=== PATIENT | male | born 1985 | race Caucasian/White ===

== ENCOUNTER 2017-08-14 09:16 | Emergency (ER) | payer SELFPAY ==
[~2017-08-14] VITALS: Ht 182.9 cm; Wt 92.5 kg
--- NOTE | 2017-08-14 09:38 | ED EENT ---
History of Present Illness General Chief Complaint: Oral/Throat Problems Stated Complaint: FEVER,SWOLLEN LYMPH NODES Source: patient History of Present Illness Date Seen by Provider: Aug 14, 2017 Time Seen by Provider: 09:25 Initial Comments PT ARRIVES VIA POV FROM [facility] C/O SORE THROAT SINCE WEDNESDAY, AND GETTING WORSE, ESPECIALLY SINCE YESTERDAY HAS HAD TROUBLE SWALLOWING SALIVA SINCE YESTERDAY AROUND 1400 HAS HAD SUBJECTIVE FEVER HAD IBUPROFEN AT 0400 TODAY WITHOUT IMPROVEMENT HAS NOT SOUGHT CARE UNTIL TODAY NO HISTORY OF THROAT INFECTIONS. NO KNOWN SICK CONTACTS, BUT WORKS IN [employer]. Allergies and Home Medications Allergies Coded Allergies: No Allergy Information Available (Unverified , 08/14/17) Home Medications No Active Prescriptions or Reported Meds Patient Home Medication List Home Medication List Reviewed: Yes Review of Systems Constitutional: see HPI, fever Eyes: No Symptoms Reported Ears: No Symptoms Reported Nose: no symptoms reported Mouth: no symptoms reported Throat: see HPI, pain, swelling, hoarse, muffled, painful swallowing, difficulty with fluids Respiratory: no symptoms reported Cardiovascular: no symptoms reported Gastrointestinal: no symptoms reported Musculoskeletal: no symptoms reported Skin: no symptoms reported Neurological: No Symptoms Reported Hematologic/Lymphatic: No Symptoms Reported Immunological/Allergic: no symptoms reported Past Eqydmbj-Akxrvn-Qfgyrg Hx Patient Social History Alcohol Use: Denies Use Recreational Drug Use: No Smoking Status: Never a Smoker 2nd Hand Smoke Exposure: No Recent Foreign Travel: No Contact w/Someone Who Travel: No Recent Hopitalizations: No Physical Abuse: No Sexual Abuse: No Mistreated: No Fear: No Immunizations Up To Date Tetanus Booster (TDap): Unknown Seasonal Allergies Seasonal Allergies: No Past Medical History Surgeries: No Respiratory: No Cardiac: No Neurological: No Genitourinary: No Gastrointestinal: No Musculoskeletal: No Endocrine: No HEENT: No Cancer: No Psychosocial: No Nursing Suicide Risk Score: 0 Integumentary: No Blood Disorders: No Physical Exam Vital Signs Vital Signs - First Documented 08/14/17 09:24 Temp 99.5 Pulse 83 Resp 18 B/P (MAP) 143/68 (93) Pulse Ox 95 General Appearance: WD/WN, no apparent distress Eyes: bilateral eye normal inspection, bilateral eye PERRL, bilateral eye EOMI Ears: right ear auricle normal, right ear canal normal; left ear other (LEFT TM OBSCURED BY CERUMEN) Nose: normal inspection Mouth/Throat: No excessive drooling; pharynx swelling, tonsillar swelling, uvula swelling, voice changes (MUFFLED), other (SIGNIFICANT SWELLING OF LEFT TONSIL AND SOFT PALATE WITH UVULAR SHIFT --UVULA TOUCHING RIGHT TONSIL. LEFT TONSIL NEARLY TOUCHING RIGHT TONSIL. ) Neck: non-tender, full range of motion, supple, lymphadenopathy (L) Cardiovascular: regular rate, rhythm, no murmur Respiratory: normal breath sounds, no respiratory distress, no accessory muscle use; No stridor, No wheezing Neurologic/Psychiatric: manager resource II-XII nml as tested, no motor/sensory deficits, alert, normal mood/affect, oriented x 3 Skin: normal color, warm/dry Progress/Results/Core Measures Lab Results Laboratory Tests Test 08/14/17 09:37 Range/Units White Blood Count 13.1 H 4.3-11.0 10^3/uL Red Blood Count 4.08 L 4.35-5.85 10^6/uL Hemoglobin 13.0 L 13.3-17.7 G/DL Hematocrit 39 L 40-54 % Mean Corpuscular Volume 95 80-99 FL Mean Corpuscular Hemoglobin 32 25-34 PG Mean Corpuscular Hemoglobin Concent 34 32-36 G/DL Red Cell Distribution Width 12.4 10.0-14.5 % Platelet Count 290 130-400 10^3/uL Mean Platelet Volume 9.8 7.4-10.4 FL Neutrophils (%) (Auto) 76 H 42-75 % Lymphocytes (%) (Auto) 13 12-44 % Monocytes (%) (Auto) 11 0-12 % Eosinophils (%) (Auto) 1 0-10 % Basophils (%) (Auto) 1 0-10 % Neutrophils # (Auto) 9.9 H 1.8-7.8 X 10^3 Lymphocytes # (Auto) 1.7 1.0-4.0 X 10^3 Monocytes # (Auto) 1.4 H 0.0-1.0 X 10^3 Eosinophils # (Auto) 0.1 0.0-0.3 10^3/uL Basophils # (Auto) 0.1 0.0-0.1 10^3/uL Sodium Level 139 135-145 MMOL/L Potassium Level 3.9 3.6-5.0 MMOL/L Chloride Level 105 98-107 MMOL/L Carbon Dioxide Level 25 21-32 MMOL/L Anion Gap 9 5-14 MMOL/L Blood Urea Nitrogen 7 7-18 MG/DL Creatinine 0.77 0.60-1.30 MG/DL Estimat Glomerular Filtration Rate > 60 BUN/Creatinine Ratio 9 Glucose Level 99 70-105 MG/DL Lactic Acid Level 0.66 0.50-2.00 MMOL/L Calcium Level 9.4 8.5-10.1 MG/DL Total Bilirubin 1.1 H 0.1-1.0 MG/DL Aspartate Amino Transf (AST/SGOT) 15 5-34 U/L Alanine Aminotransferase (ALT/SGPT) 18 0-55 U/L Alkaline Phosphatase 56 40-136 U/L Total Protein 7.9 6.4-8.2 GM/DL Albumin 4.0 3.2-4.5 GM/DL Monoscreen NEGATIVE NEGATIVE Group A Streptococcus Screen NEGATIVE NEGATIVE My Orders Orders - BOY TATUM DO Saline Lock/Iv-Start (08/14/17 09:23) Ct Neck (Soft Tissue) W (08/14/17 09:23) Cbc With Automated Diff (08/14/17 09:23) Comprehensive Metabolic Panel (08/14/17 09:23) Lactic Acid Analyzer (08/14/17 09:23) Monotest (08/14/17 09:23) Rapid Strep A Screen (08/14/17 09:23) Blood Culture (08/14/17 09:23) Saline Lock/Iv-Start (08/14/17 09:23) Iohexol Injection (Omnipaque 350 Mg/Ml 1 (08/14/17 09:45) Ns (Ivpb) (Sodium Chloride 0.9%) (08/14/17 09:45) Dexamethasone Injection (Decadron Inject (08/14/17 10:00) Ceftriaxone Injection (Rocephin Injectio (08/14/17 10:00) Ketorolac Injection (Toradol Injection) (08/14/17 10:00) Saline Lock/Iv-Start (08/14/17 10:15) Lactated Ringers (Lr 1000 Ml Iv Solution (08/14/17 10:15) Medications Given in ED Current Medications Medications Dose Ordered Sig/Celestine Route Start Time Stop Time Status Last Admin Dose Admin Ceftriaxone Sodium 2000 mg/ Sodium Chloride 100 ml @ 200 mls/hr ONCE ONCE IV 08/14/17 10:00 08/14/17 10:29 DC 08/14/17 10:29 200 MLS/HR Dexamethasone Sodium Phosphate 10 mg ONCE ONCE IV 08/14/17 10:00 08/14/17 10:01 DC 08/14/17 10:02 10 MG Iohexol 75 ml ONCE ONCE IV 08/14/17 09:45 08/14/17 09:46 DC 08/14/17 09:56 75 ML Ketorolac Tromethamine 30 mg ONCE ONCE IVP 08/14/17 10:00 08/14/17 10:01 DC 08/14/17 10:00 30 MG Lactated Ringer's 1,000 ml @ 0 mls/hr Q0M ONCE IV 08/14/17 10:15 08/14/17 10:16 DC 08/14/17 10:35 1,000 MLS/HR Sodium Chloride 250 ml ONCE ONCE IV 08/14/17 09:45 08/14/17 09:46 DC 08/14/17 09:56 80 ML Vital Signs/I&O 08/14/17 09:24 Temp 99.5 Pulse 83 Resp 18 B/P (MAP) 143/68 (93) Pulse Ox 95 Progress Note : Progress Note NO DETERIORATION IN PT'S CONDITION DURING ER STAY PT STATES HE IS FEELING BETTER AT TIME OF TRANSFER, LESS PAIN, FEELS LIKE HE CAN SWALLOW A LITTLE BETTER Comments CT NECK SOFT TISSUES--MODERATE AMOUNT OF INFLAMMATION AND 2 CM LEFT TONSILLAR ABSCESS WITH EXTENSION INTO PYRIFORM SINUS WELL QUESTIONABLE INVOLVEMENT IN PREVERTEBRAL SOFT TISSUES AT LEVEL OF C3,REACTIVE LYMPHADENOPATHY--PER RADIOLOGIST REPORT @ 1033 Reviewed: Reviewed by Me Departure Communication (Admissions) 0931--CALLED Brandy YUSUF NP [facility] FOR ENT. DR. LOPEZ IS OUT OF TOWN AND SHE CANNOT DO ANY PROCEDURES WITHOUT HIS PRESENCE 0938--CONTACTED JOHNNY DAVALOS ENT RESIDENT 0942--SPOKE WITH DR. GLOVER, ENT RESIDENT, SHE ADVISES TO TRANSFER PT TO ER AND SHE WILL SEE PT THERE 0946--SPOKE WITH DR. SANCHEZ, ER PHYSICIAN, ACCEPTS PT FOR TRANSFER 0950--[facility]S CONTACTED FOR TRANSFER. 1115--[facility]S HERE FOR TRANSPORT Impression Primary Impression: left peritonsillar abscess Disposition: XFER SHT-TRM HOSP Condition: Stable Departure-Patient Inst. Referrals: [facility] (PCP/Family) Primary Care Physician Scripts No Active Prescriptions or Reported Meds BOY TATUM DO Aug 14, 2017 09:38
[2017-08-14] MEDS ORDERED: IOHEXOL 350 MG/ML 100 ML (OMNIPAQUE 350) VIAL IV ONE (09:45)
[2017-08-14] MEDS ORDERED: NS 250 ML (IVPB) BAG IV ONE (09:45)
[2017-08-14 09:52] LABS: BASOPHILS # (AUTO) 0.1 10^3/uL (0.0-0.1); BASOPHILS % (AUTO) 1 % (0-10); EOSINOPHILS # (AUTO) 0.1 10^3/uL (0.0-0.3); EOSINOPHILS % (AUTO) 1 % (0-10); HEMATOCRIT 39 % (40-54); LYMPHOCYTES # (AUTO) 1.7 X 10^3 (1.0-4.0); LYMPHOCYTES % (AUTO) 13 % (12-44); MEAN CORPUSCULAR HEMOGLOBIN 32 PG (25-34); MEAN CORPUSCULAR HGB CONC 34 G/DL (32-36); MEAN CORPUSCULAR VOLUME 95 FL (80-99); MEAN PLATELET VOLUME 9.8 FL (7.4-10.4); MONOCYTES # (AUTO) 1.4 X 10^3 (0.0-1.0); MONOCYTES % (AUTO) 11 % (0-12); NEUTROPHILS # (AUTO) 9.9 X 10^3 (1.8-7.8); NEUTROPHILS % (AUTO) 76 % (42-75); PLATELET COUNT 290 10^3/uL (130-400); RED BLOOD COUNT 4.08 10^6/uL (4.35-5.85); RED CELL DISTRIBUTION WIDTH 12.4 % (10.0-14.5); WHITE BLOOD COUNT 13.1 10^3/uL (4.3-11.0)
[2017-08-14] MEDS ORDERED: KETOROLAC 30 MG/ML VIAL IVP ONE (10:00)
[2017-08-14] MEDS ORDERED: cefTRIAXone INJECTION 2,000 MG in NS (IVPB) 100 ML IV ONE (10:00)
[2017-08-14] MEDS ORDERED: DEXAMETHASONE 4 MG/ML SDV (DECADRON) IV ONE (10:00)
[2017-08-14 10:09] LABS: ALANINE AMINOTRANSFERASE 18 U/L (0-55); ALKALINE PHOSPHATASE 56 U/L (40-136); BILIRUBIN,TOTAL 1.1 MG/DL (0.1-1.0); BUN/CREATININE RATIO 9; CALCIUM 9.4 MG/DL (8.5-10.1); CARBON DIOXIDE 25 MMOL/L (21-32); CHLORIDE 105 MMOL/L (98-107); CREATININE SERUM 0.77 MG/DL (0.60-1.30); GFR ESTIMATED > 60; GLUCOSE 99 MG/DL (70-105); POTASSIUM 3.9 MMOL/L (3.6-5.0); SODIUM 139 MMOL/L (135-145); TOTAL PROTEIN 7.9 GM/DL (6.4-8.2)
[2017-08-14] MEDS ORDERED: LACTATED RINGERS 1,000 ML IV ONE (10:15)
--- NOTE | 2017-08-14 10:19 | Diagnostic Imaging Report ---
PROCEDURE: CT neck soft tissue with contrast. TECHNIQUE: Multiple contiguous axial images were obtained through the neck after the administration of contrast. INDICATION: Left neck pain, swelling, sore throat, fever. COMPARISON: None. FINDINGS: There is a moderate amount of inflammation as well as a 2 cm left tonsillar abscess. The abscess extends inferiorly into the pyriform sinus. There is some mass effect on the airway without overt compromise. The true and false vocal cords have a normal appearance. There is moderate reactive bilateral jugular lymphadenopathy. The largest lymph node is on the left measuring approximately 16 mm in cross-section. Questionable prevertebral extension is seen at the level of C3. The upper mediastinum and visualized lung apices appear grossly normal. The thyroid, submandibular and parotid glands are normal. Osseous structures are intact. Vascular structures are grossly unremarkable. IMPRESSION: 1. Left tonsillar abscess with extension into the pyriform sinus as well as some questionable involvement of the prevertebral soft tissues at the level of C3. There is no overt upper mediastinal involvement. 2. Reactive lymphadenopathy. Recommend followup to assure resolution. Dictated by: Dictated on workstation # [id number]
[2017-08-14 11:20] VITALS: BP 139/69
== END 2017-08-14 11:19 | disposition short-term general hospital (02) ==
LOC: ER 09:21
DX: J36 Peritonsillar abscess (principal)
CPT/HCPCS: 36415; 70491; 80053; 83605; 85025; 86308; 87040; 87430; 96361; 96365; 96375